=== PATIENT | female | born 1950 | race Caucasian/White ===

== ENCOUNTER → 2018-12-15 | Outpatient (CLI) | payer MEDICARE ==
[~2018-12-15] MED LIST: ATOR40TA78 PO; GABA100C PO; LOSA50TA14 PO; SITA1TAB5 PO
[2018-12-15 16:15] LABS: ALANINE AMINOTRANSFERASE 26 U/L (12-78); ANION GAP 7 mmol/L (5-15); CALCIUM 9.5 mg/dL (8.5-10.1); CHLORIDE 106 mmol/L (98-107)
[2018-12-15 16:17] LABS: ALKALINE PHOSPHATASE 56 U/L (45-117); BILIRUBIN,TOTAL 0.4 mg/dL (0.2-1.0); TOTAL PROTEIN 7.7 g/dL (6.4-8.2)
== END | disposition home or self-care (01) ==
LOC: STAR 15:03 → MERGE 15:30
PROVIDERS: ATTEND Surgery
DX: Z01.818 Encounter for other preprocedural examination (principal); K80.10 Calculus of gallbladder with chronic cholecystitis without obstruction
CPT/HCPCS: 36415; 80053; 93005

== ENCOUNTER 2018-12-21 05:51 | Day surgery (SDC) | payer MEDICARE ==
[~2018-12-21] VITALS: Ht 167.6 cm; Wt 97.0 kg
[2018-12-21] MEDS ORDERED: INDOCYANINE GREEN 25 MG VIAL ONE (06:35)
[2018-12-21] MEDS ORDERED: LACTATED RINGERS 1,000 ML IV SCH ×2 (06:38→06:40)
[2018-12-21 06:39] VITALS: BP 159/99
[2018-12-21] MEDS ORDERED: BUPIVACAINE/PF-EPI 0.5% 1:200K ONE (06:47)
[2018-12-21] MEDS ORDERED: PROPOFOL 50 ML ONE (07:13)
[2018-12-21] MEDS ORDERED: FENTANYL PF 250 MCG/5ML ONE (07:13)
[2018-12-21] MEDS ORDERED: MIDAZOLAM 1 MG/ML, 2ML ONE (07:29)
[2018-12-21] MEDS ORDERED: INDOCYANINE GREEN 25 MG VIAL IVPush ONE (07:30)
[2018-12-21] MEDS ORDERED: ONDANSETRON 2MG/ML, 2ML ONE (07:37)
[2018-12-21] MEDS ORDERED: DEXAMETHASONE 4 MG/ML, 1ML ONE (07:37)
[2018-12-21] MEDS ORDERED: SUCCINYLCHOLINE 20 MG/ML, 10ML ONE (07:37)
[2018-12-21] MEDS ORDERED: ROCURONIUM 10 MG/ML,10ML ONE (07:37)
[2018-12-21] MEDS ORDERED: CEFAZOLIN 1,000 MG ONE (07:37)
[2018-12-21] MEDS ORDERED: PROMETHAZINE 25 MG SUPP PR PRN (08:00)
[2018-12-21] MEDS ORDERED: PROMETHAZINE 12.5 MG SUPP PR PRN (08:00)
[2018-12-21] MEDS ORDERED: OXYcodone 5 MG/5 ML ORAL.SOL UDC PO PRN ×2 (08:00→10:30)
[2018-12-21] MEDS ORDERED: DIAZEPAM 5 MG/ML, 2ML IVPush PRN (08:00)
[2018-12-21] MEDS ORDERED: PROMETHAZINE 25 MG/ML, 1ML IV PRN (08:00)
[2018-12-21] MEDS ORDERED: ONDANSETRON ODT 8 MG PO PRN (08:00)
[2018-12-21] MEDS ORDERED: EPHEDRINE 50 MG/ML, 1ML IVPush PRN (08:00)
[2018-12-21] MEDS ORDERED: MEPERIDINE/PF 25MG/0.5ML IVPush PRN (08:00)
[2018-12-21] MEDS ORDERED: LABETALOL 5MG/ML, 20ML IV PRN (08:00)
[2018-12-21] MEDS ORDERED: MIDAZOLAM 1 MG/ML, 2ML IV PRN (08:00)
[2018-12-21] MEDS ORDERED: EPHEDRINE 50 MG/ML, 1ML IM PRN (08:00)
[2018-12-21] MEDS ORDERED: DIPHENHYDRAMINE 50 MG/ML, 1ML IVPush PRN ×2 (08:00→10:30)
[2018-12-21] MEDS ORDERED: ONDANSETRON 2MG/ML, 2ML IV PRN (08:00)
[2018-12-21] MEDS ORDERED: FENTANYL PF 100 MCG/2ML ONE ×2 (08:52→09:08)
[2018-12-21] MEDS ORDERED: OXYcodone 5 MG/5 ML ORAL.SOL UDC ONE (08:52)
[2018-12-21] MEDS: FENTANYL PF 100 MCG/2ML IV PRN ×4 (08:55→09:15)
[2018-12-21] MEDS ORDERED: hydrALAzine 20 MG/ML, 1ML ONE (09:17)
[2018-12-21] MEDS ORDERED: MORPHINE SULFATE 4 MG/ML, 1ML ONE (09:21)
[2018-12-21] MEDS: MORPHINE SULFATE 4 MG/ML, 1ML IVPush PRN ×2 (09:25→09:30)
[2018-12-21] MEDS ORDERED: HYDROmorphone 2 MG/ML, 1ML IVPush PRN (10:30)
== END 2018-12-21 13:45 | disposition home or self-care (01) ==
LOC: OUT 05:51 → MERGE 07:30 → OUT 13:45
PROVIDERS: ATTEND Surgery
DX: K80.10 Calculus of gallbladder with chronic cholecystitis without obstruction (principal); I10 Essential (primary) hypertension; E11.9 Type 2 diabetes mellitus without complications; Z90.710 Acquired absence of both cervix and uterus; Z98.890 Other specified postprocedural states; Z72.89 Other problems related to lifestyle; Z79.84 Long term (current) use of oral hypoglycemic drugs
CPT/HCPCS: 47562; 82962; 88304; J0330; J0690; J1100; J2250; J2405; J2704; J3010; J7120

== ENCOUNTER 2019-10-17 13:29 | Outpatient (CLI) | payer MEDICARE | END 2019-10-17 23:59 | disposition home or self-care (01) | LOC: CFH 13:29 | PROVIDERS: ATTEND Family Medicine | DX: M16.0 Bilateral primary osteoarthritis of hip (principal); S32.592G Other specified fracture of left pubis, subsequent encounter for fracture with delayed healing; M85.88 Other specified disorders of bone density and structure, other site; X58.XXXD Exposure to other specified factors, subsequent encounter ==

== ENCOUNTER → 2019-11-14 | Outpatient (CLI) | payer MEDICARE | END | disposition home or self-care (01) | LOC: CFH 11:15 | PROVIDERS: ATTEND Family Medicine | DX: M47.817 Spondylosis without myelopathy or radiculopathy, lumbosacral region (principal) | CPT/HCPCS: 72110 ==

== ENCOUNTER → 2019-12-26 | Outpatient (CLI) | payer MEDICARE | END | disposition home or self-care (01) | LOC: CFH 12:02 | PROVIDERS: ATTEND Family Medicine | DX: I87.8 Other specified disorders of veins (principal); R06.00 Dyspnea, unspecified | CPT/HCPCS: 93306 ==